=== PATIENT | male | born 1960 | race Caucasian/White ===

== ENCOUNTER 2018-03-28 05:04 | Day surgery (SDC) | payer OTHER, BC ==
[2018-03-26 10:41] VITALS: BMI 24.4
[2018-03-28] MEDS ORDERED: BUPIVACAINE HCL/PF 0.5% (5MG/ML) 10 ML VIAL ONE (08:53)
[2018-03-28] MEDS ORDERED: MIDAZOLAM HCL 2 MG/2 ML SINGLE DOSE VIAL ONE ×2 (08:56)
[2018-03-28] MEDS ORDERED: ceFAZolin SODIUM 1 GM VIAL IVPB ONE (10:21)
--- NOTE | 2018-03-28 10:23 | HP ---
Satellite [facility] - Chief Complaint Chief Complaint: left shoulder pain - Past Medical History Allergies/Adverse Reactions: Allergies Allergy/AdvReac Type Severity Reaction Status Date / Time No Known Drug Allergies Allergy Verified 03/28/18 07:56 - Current Medications Current Medications: Home Medications Medication Instructions Recorded Acetaminophen [Tylenol] 650 mg PO PRN 03/26/18 Naproxen Sodium [Aleve] 220 mg PO DAILY 03/26/18 Oxycodone HCl [Roxicodone] 5 mg PO PRN 03/26/18 Ipratropium/Albuterol Sulfate 4 gm IH PRN PRN 03/28/18 [Combivent Respimat Inhal [place]] Satellite Physical Exam - Physical Examination Vital Signs: Vital Signs Period Temp Pulse Resp BP Sys/Fontanez Pulse Ox Last 24 Hr 98.6 F 72 16 124/82 95 General Appearance: Well Nourished, Well Developed, Alert & Oriented x3 ENT: Clear Lung: Normal air movement Heart: Regular rate & rhythm Extremities: Other (left shoulder- + ttp, decr rom, + neer,+gallo, + empty can , nvi MRI + rct) Neurological: Intact, Alert, Oriented Satellite Impression/Plan - Impression/Plan Impression: left shoulder rct Operative Procedure: left shoulder arthroscopy with SILVINO CROWLEY Date to be Performed: 03/28/18
[2018-03-28] MEDS ORDERED: ONDANSETRON 4 MG/2 ML VIAL IVPUSH PRN (10:48)
[2018-03-28] MEDS ORDERED: oxyCODONE HCL 5 MG TABLET PO PRN (10:48)
[2018-03-28] MEDS ORDERED: LACTATED RINGERS SOLUTION 1,000 ML IV SCH (11:00)
--- NOTE | 2018-03-28 12:07 | OP ---
Operative Note - Note: Operative Date: 03/28/18 ([facility]) Pre-Operative Diagnosis: left shoulder rct Operation: left shoulder arthroscopy with RCR, SAD Implants: 1 arthrex swivelock Post-Operative Diagnosis: Same as Pre-op Surgeon: Vega Banks Tennis Racket Repairer: Omari Summers Anesthesiologist/HEATER ENGINEER HELPER: Cynthia Barnett Anesthesia: Local, MAC Specimens Removed: shavings Estimated Blood Loss (mls): 5 Operative Report Dictated: Yes
[2018-03-28 13:12] VITALS: PULSE 68; TEMP 97.9
[2018-03-28 14:09] VITALS: BP 136/76
--- NOTE | 2018-03-28 20:29 | SPEC ---
DATE OF OPERATION: DATE OF DICTATION: 03/28/2018 PREOPERATIVE DIAGNOSIS: Left shoulder impingement syndrome and rotator cuff tear. POSTOPERATIVE DIAGNOSIS: Left shoulder impingement syndrome and rotator cuff tear. PROCEDURE: Left shoulder arthroscopy, subacromial decompression, distal clavicle excision, and arthroscopic rotator cuff repair. SURGEON: Mila Singh M.D. [employer]: Robert Fritz ANESTHESIOLOGIST: Cynthia Mondragon CRNA ANESTHESIA: Left interscalene block with MAC anesthesia. DRAINS: None. COMPLICATIONS: None. SPECIMENS: Arthroscopic shavings. BLOOD LOSS: Minimal. BLOOD GIVEN: None. FLUID REPLACEMENT: 700 mL Plasmalyte. INDICATIONS: After understanding the potential risks, complications, alternatives and benefits of surgery versus nonsurgical treatment, the patient elected to undergo this procedure. PROCEDURE: The patient was brought to the operating room. Peripheral IV placed and left interscalene block was performed. General endotracheal anesthesia was induced after an LMA was not working. The patient was placed into the beach chair position with ample padding throughout. The patient received 1 gram of IV Ancef. The arthroscope was introduced into the glenohumeral joint. Diagnostic arthroscope was performed. Inside the joint there was some tearing of the anterior capsule from the manipulation. The rotator cuff looked great. There was no glenohumeral arthritis. The superior and anterior portion of the labrum looked degenerated and frayed. The area was copiously irrigated and washed out. The patient had a clear rotator cuff tear. There was a lot of undersurface fraying and synovitis near the mid aspect anterior portal was established under direct visualization using spinal needle and the undersurface of the rotator cuff was debrided. The top surface of the rotator cuff was directly visualized in all planes, putting arm through full range of motion, and the patient had a clear rotator cuff tear, crescent shaped, of the anterior aspect of the supraspinatus. This was repaired with 3 Fiberwire sutures which were passed with the scorpion needle passer and passed through a Swivelock Arthrex anchor, and it was arthroscopically. The arthroscope was introduced into the subacromial space. Patient had a tremendous amount of bursitis and the lateral portal was established under direct visualization. A Green cannula was introduced into the joint and a soft tissue bursectomy was performed with ArthroCare wand. This revealed a very large bony spur which was taken down with a 5.5 mm oval bur and a [place] Green shaver. The patient had a very low-lying lateral inferior clavicle; therefore, this was taken down to the level of the AC joint with the carmen as well. The debris was removed. Patient had ample space. The arm was put through a range of motion. There was no impingement. The area was copiously irrigated and washed out, debris removed with a shaver. The arthroscopy portals were closed with 3-0 nylon sutures. The area was then washed and dried, covered with Xeroform, 4 x 4 gauze, ABDs and tape. There were no complications during the case. The patient tolerated the procedure quite well and was bought to the recovery room in stable condition. MILA SINGH M.D. [id number]
--- NOTE | 2018-03-29 18:11 | PATH ---
Surgical Pathology Report Patient Name: MALIA BARROW [facility]. Rec. #: [id number] /Age/Gender: 1960 (Age: 57) / M Account: [id number] Location: [facility] SURGICAL Taken: 03/28/2018 Received: 03/28/2018 Reported: 03/29/2018 Physicians: Vega Banks M.D. Specimen(s) Received LEFT SHOULDER SHAVINGS Clinical History Left shoulder tear Final Diagnosis LEFT SHOULDER SHAVINGS: FRAGMENTS OF BONE, FIBROCONNECTIVE AND CARTILAGINOUS TISSUE WITH DEGENERATIVE CHANGE. Electronically Signed Marixa Cason M.D. Gross Description Received in formalin, labeled "left shoulder shavings," is a 5.5 x 4.5 x 0.6 cm. aggregate of preciado-yellow soft tissue fragments. A sales representative supervisor portion is submitted in one cassette. /03/28/201803/28/2018
== END 2018-03-28 14:15 | disposition home or self-care (01) ==
LOC: JASU-SURG 05:04
PROVIDERS: ATTEND Orthopaedic Surgery
PROC: 0PBB4ZZ Excision of Left Clavicle, Percutaneous Endoscopic Approach (ICD-10-PCS; 2018-03-28)
PROC: 0RNK4ZZ Release Left Shoulder Joint, Percutaneous Endoscopic Approach (ICD-10-PCS; principal; 2018-03-28 09:30)
PROC: 0LQ24ZZ Repair Left Shoulder Tendon, Percutaneous Endoscopic Approach (ICD-10-PCS; 2018-03-28 09:30)
DX: M75.42 Impingement syndrome of left shoulder (principal); M75.101 Unspecified rotator cuff tear or rupture of right shoulder, not specified as traumatic
CPT/HCPCS: 88304-TC; 94760